=== PATIENT | male | born 1935 | race American Indian/Alaskan Native ===

== ENCOUNTER 2017-09-28 06:07 | Emergency (ER) | payer MEDICARE ==
[2017-09-28] MEDS ORDERED: VERSED IV ONE (08:04)
[2017-09-28] MEDS ORDERED: KEPPRA 1,000 MG/NS 0.75% 100ML 1,000 MG/100 ML BAG IV ONE (08:17)
--- NOTE | 2017-09-28 08:17 | Emergency Department Report ---
HPI - General Chief Complaint: Altered Mental Status Time Seen by Provider: 09/28/17 08:02 - [facility] HPI: Room 21 The patient is an 82-year-old male presenting with a chief complaint of altered mental status. The patient was brought in by his son after he found the patient lying in bed leading from his left ear and incoherent. The son states his last seen his father the morning of 09/26/2017. The patient states he came home from work this morning at 04:00 found the patient lying in bed incoherent. Patient denies complaints but is incoherent as I had to ask the patient 6 or 7 times before he was able to tell me his name. Location: Mental status Duration: [See above] Quality: Altered Severity: Moderate Modifying factors: [see above] Context: [see above] Mode of transportation: [not driving] ED Past Medical Hx - Past Medical History Hx Hypertension: Yes Hx GERD: Yes Additional medical history: HIGH CHOLESTEROL - Surgical History Past Surgical History?: No Additional Surgical History: broken left ankle 1998 - Family History Family history: no significant - Social History Smoking Status: Current Every Day Smoker Substance Use Type: Alcohol - Medications Home Medications: Home Medications Medication Instructions Recorded Confirmed Last Taken Type Lisinopril 40 mg PO DAILY 09/28/17 09/28/17 Unknown History Lovastatin 20 mg PO HS 09/28/17 09/28/17 Unknown History NIFEdipine 60 mg PO DAILY 09/28/17 09/28/17 Unknown History Omeprazole 40 mg PO DAILY 09/28/17 09/28/17 Unknown History ED Review of Systems ROS: Stated complaint: FALL Other details as noted in HPI Comment: Unobtainable due to pts medical conditions Physical Exam - Physical Exam Vital Signs: Vital Signs 09/28/17 06:42 Temperature 98 F Pulse Rate 98 H Blood Pressure 142/64 O2 Sat by Pulse 91 Oximetry Physical Exam: GENERAL: The patient is well-developed well-nourished male lying on stretcher appearing confused. Not in acute distress. [] HEENT: Normocephalic. Atraumatic. Pupils 4-3 mm bilaterally. Patient has moist mucous membranes. Left auditory canal filled with blood. Unable to visualize TM NECK: Supple. Trachea midline CHEST/LUNGS: Clear to auscultation. There is no respiratory distress noted. HEART/CARDIOVASCULAR: Regular. There is no tachycardia. There is no gallop rub or murmur. ABDOMEN: Abdomen is soft, nontender. Patient has normal bowel sounds. There is no abdominal distention. SKIN: There is no rash. There is no edema. There is no diaphoresis. NEURO: The patient is awake, alert, and oriented. The patient is cooperative. The patient has no focal neurologic deficits. The patient has normal speech and gait. MUSCULOSKELETAL: There is no tenderness or deformity. There is no limitation range of motion. There is no evidence of acute injury. ED Course Vital Signs 09/28/17 06:42 Temperature 98 F Pulse Rate 98 H Blood Pressure 142/64 O2 Sat by Pulse 91 Oximetry - Consultations Consultation #1: 09/28/17 08:26 Lane trauma/transfer line called 09/28/17 08:[address] Glover ED Medical Decision Making - Radiology Data Radiology results: report reviewed (CT head, CT cervical spine), image reviewed (CT head, CT cervical spine) CT head and CT cervical spine discussed with radiologist Dr. Oneill- multiple cerebral contusions, bilateral temporal and bilateral frontal lobe contusions. Small subdural hematoma. Comminuted fracture to the left and poor bone and left mastoid air cells. No midline shift, no herniation currently. C-spine does not reveal any acute fractures - Differential Diagnosis intracranial hemorrhage, cervical fracture Critical care attestation.: If time is entered above; I have spent that time in minutes in the direct care of this critically ill patient, excluding procedure time. ED Disposition Clinical Impression: Cerebral contusion, Temporal bone fracture, Mastoid fracture Disposition: DC/TX-70 ANOTHER TYPE HLTHCARE Is pt being admited?: No Does the pt Need Aspirin: No Condition: Serious Referrals: MAYITO PIRES MD [Other] - 3-5 Days Time of Disposition: 08:33 (awaiting transport)
[2017-09-28] MEDS ORDERED: ATIVAN IV ONE (08:40)
[2017-09-28] MEDS ORDERED: ATIVAN ONE (08:44)
[2017-09-28 08:47] LABS: Basophils % (Auto) 0.1 % (0.0-1.8); Hematocrit 39.6 % (35.5-45.6); Hemoglobin 12.7 gm/dl (11.8-15.2); Lymphocytes # (Auto) 0.6 K/mm3 (1.2-5.4); Lymphocytes % (Auto) 4.9 % (13.4-35.0); Mean Corpuscular HGB Conc 32 % (32-34); Mean Corpuscular Volume 76 fl (84-94); Monocytes # (Auto) 0.9 K/mm3 (0.0-0.8); Monocytes % (Auto) 6.5 % (0.0-7.3); Platelet Count 161 K/mm3 (140-440); Red Blood Count 5.23 M/mm3 (3.65-5.03); Red Cell Distribution Width 16.9 % (13.2-15.2)
--- NOTE | 2017-09-28 08:48 | Cat Scan Report ---
CT HEAD WITHOUT CONTRAST INDICATION: Altered mental status. COMPARISON: None similar. FINDINGS: Noncontrast head CT limited due to motion artifact, though demonstrates multiple hemorrhagic contusions with surrounding hypodense edema in both frontal lobes inferiorly measuring up to 4.1 cm, axial image 17, series 2. Approximately 1.5 cm hemorrhagic contusion also noted in the high right frontal lobe, axial image 43. Bilateral temporal lobe hemorrhagic contusions with surrounding edema measure approximately 2.6 cm on the right anteriorly, axial image 15 and approximately 4.5 cm in the left temporal lobe posteriorly, axial image 18 in this patient with minimal left temporal pneumocephalus as on axial images 18 and 19 as well as in this patient with a comminuted left temporal bone fracture extending through the mastoid air cells and the ear as on axial images 10-20, series 3. Associated opacification of the left middle ear and external auditory canal also noted. Subtle hyperdense subdural hemorrhage along the falx anteriorly as on axial images 19-29 and also questionably along the tentorium not entirely excluded. Moderate periventricular hypodense small vessel ischemic disease. Otherwise symmetric, age-appropriate ventricles and sulci. Normal posterior fossa with preserved basilar cisterns. Normal eye globes. Moderate to severe, near complete left and mild right sphenoid sinus mucosal thickening. Clear remainder imaged paranasal sinuses and right mastoid air cells. Atherosclerotic ICA and vertebral artery calcifications. No other significantly depressed skull fractures. Scalp swelling/hematoma noted posterosuperiorly. Edentulous jaw. CONCLUSION: 1. Multiple hemorrhagic contusions with edema noted in both frontal and temporal lobes, as described with minimal left temporal pneumocephalus suspected in this patient with a comminuted left temporal bone/mastoid fracture, as described. ENT correlation may be obtained, as appropriate. 2. No midline shift or herniation at this time with various other findings, including left more than right sphenoid sinus disease, microvascular changes and scalp swelling, amongst others, as above. I phoned the above results to Dr. Treadwell in the ER, 8 AM, 09/28/2017. Thank you for the opportunity to participate in this patient's care.
[2017-09-28 08:54] LABS: Mean Corpuscular Hemoglobin 24 pg (28-32)
--- NOTE | 2017-09-28 08:57 | Cat Scan Report ---
CT CERVICAL SPINE WITHOUT CONTRAST INDICATION: Altered mental status. COMPARISON: None similar. FINDINGS: Noncontrast axial, sagittal and coronal CT reconstructions through the cervical spine partially image bilateral sphenoid sinus opacification and comminuted left temporal bone fracture with opacified middle ear and external auditory canal, described in detail on the accompanying head CT. Grossly unremarkable cerebellum. Mild atherosclerotic vertebral artery calcifications. Intact craniocervical articulation, dens and anterior and posterior arches of C1. Normal prevertebral soft tissues. Cervical spine straightening, possibly positional versus spasm with multilevel cervical spine degenerative changes as spurring and disc degeneration. Intact posterior elements. Assessment of the spinal canal itself compromised from C4 inferiorly due to shoulders soft tissue artifact. Approximately 1.5 cm heterogeneous/slightly hypodense left thyroid nodule, axial image 60, series 3. Clear imaged lung apices. On the obtained axial images: C2-C3 demonstrates mild spurring and disc narrowing. C3-C4 demonstrates disc narrowing and spurring with left slightly more than right uncovertebral spurring. C4-C5 demonstrates moderate to severe left and mild right facet hypertrophy. Left more than right uncovertebral spurring. Disc narrowing. C5-C6 also demonstrates disc narrowing. Mild to moderate degenerative spurring. Mild right facet arthropathy. C6-C7 and C7-T1 are grossly unremarkable. CONCLUSION: 1. No acute cervical spine CT abnormality with multilevel degenerative changes noted, as above. 2. Imaged intracranial findings, including left temporal bone/mastoid fracture, as described. I phoned the above results to Dr. Treadwell in the ER, 8 AM, 09/28/2017. Thank you for the opportunity to participate in this patient's care.
[2017-09-28 08:59] LABS: Alanine Aminotransferase 21 units/L (7-56); Albumin 3.9 g/dL (3.9-5); BUN/Creatinine Ratio 15; Blood Urea Nitrogen 9 mg/dL (9-20); Calcium 9.2 mg/dL (8.4-10.2); Hemolysis Index 18
[2017-09-28] MEDS ORDERED: VERSED IV NR (09:00)
[2017-09-28] MEDS ORDERED: NACL 0.9% 1000 ML 1,000 ML ONE (09:13)
[2017-09-28 09:15] LABS: Bilirubin,Urine NEG (Negative); Blood,Urine MOD (Negative); Color,Urine Yellow (Yellow); Mucus,Urine FEW /HPF; Nitrite,Urine NEG (Negative); Protein,Urine <15 mg/dL mg/dL (Negative); Urobilinogen,Urine < 2.0 mg/dL (<2.0)
[2017-09-28] MEDS ORDERED: NACL 0.9% 1000 ML 1,000 ML IV ONE (09:20)
[2017-09-28 09:22] VITALS: BP 158/79
[2017-09-28 11:11] LABS: Amphetamine Screen,Urine PRESUMPTIVE NEGATIVE; Cannabinoid Screen,Urine PRESUMPTIVE NEGATIVE; Cocaine Screen,Urine PRESUMPTIVE NEGATIVE; Methadone Screen,Urine PRESUMPTIVE NEGATIVE; Opiate Screen,Urine PRESUMPTIVE NEGATIVE
[2017-09-28 11:29] LABS: Benzodiazepines Screen,Urine PRESUMPTIVE POSITIVE
== END 2017-09-28 09:23 | disposition other institution (70) ==
LOC: ED 06:07
DX: S02.19XA Other fracture of base of skull, initial encounter for closed fracture (principal); S06.2X9A Diffuse traumatic brain injury with loss of consciousness of unspecified duration, initial encounter; K21.9 Gastro-esophageal reflux disease without esophagitis; I10 Essential (primary) hypertension; E78.00 Pure hypercholesterolemia, unspecified; F17.200 Nicotine dependence, unspecified, uncomplicated; X58.XXXA Exposure to other specified factors, initial encounter; Y93.89 Activity, other specified; Y92.89 Other specified places as the place of occurrence of the external cause; Y99.8 Other external cause status
CPT/HCPCS: 36415; 70450; 72125; 80053; 80307; 81001; 82962; 85025; 93005; 93010; 96365; 96375; 99285; G0480; J1953; J2060; J2250; J7030; 80320